=== PATIENT | male | born 2000 | race African-American/Black ===

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

== ENCOUNTER 2020-12-04 09:31 | Emergency (ER) | payer BC, OTHER, SELFPAY ==
[2020-12-04] MEDS ORDERED: Dexamethasone 4 MG TAB ONE (09:57)
== END 2020-12-04 10:00 | disposition home or self-care (01) ==
LOC: BURERS 09:31
DX: J02.9 Acute pharyngitis, unspecified (principal)
CPT/HCPCS: 99283; J8540

== ENCOUNTER 2021-08-25 10:42 | Emergency (ER) | payer BC | END 2021-08-25 11:29 | disposition home or self-care (01) | LOC: BURERS 10:42 | DX: N49.2 Inflammatory disorders of scrotum (principal) | CPT/HCPCS: 54700 ==